=== PATIENT | female | born 1950 | race Caucasian/White ===

== ENCOUNTER → 2023-01-02 | Outpatient (CLI) | payer MEDICARE ==
[~2023-01-02] MED LIST: IBUPROFEN800 MG; Z.0.ATENOLOL100 MG; Z.0.ATENOLOL50 MG; Z.0.LEVAQUIN500 MG; Z.0.VENTOLIN HFA18 G; Z.0.VICODIN 5-5001 E
== END ==
LOC: US 09:28
PROVIDERS: ATTEND Family Medicine
DX: R91.1 Solitary pulmonary nodule (principal)
CPT/HCPCS: 71250; 76536

== ENCOUNTER → 2023-04-17 | Outpatient (CLI) | payer MEDICARE | LOC: CT 13:29 | PROVIDERS: ATTEND Family Medicine | DX: R51.9 Headache, unspecified (principal) | CPT/HCPCS: 70450 ==

== ENCOUNTER 2024-04-24 19:02 | Emergency (ER) | payer MEDICARE ==
[~2024-04-24] VITALS: Ht 162.6 cm; Wt 72.6 kg
[2024-04-24 19:05] VITALS: TEMP 98.3
[2024-04-24 19:26] LABS: BASOPHILS % 0.4 % (0.0-1.0); EOSINOPHILS # (AUTO) 0.2 (0.0-0.4); EOSINOPHILS % 2.8 % (0.0-6.0); HEMATOCRIT 41.9 % (34.2-44.1); HEMOGLOBIN 13.2 g/dL (12.0-16.0); LYMPHOCYTES # (AUTO) 1.4 (1.0-3.2); LYMPHOCYTES % 17.1 % (18.0-39.1); MEAN CORPUSCULAR HEMOGLOBIN 26.7 pg (28-32); MEAN CORPUSCULAR HGB CONC 31.5 g/dL (31-35); MEAN CORPUSCULAR VOLUME 84.8 fL (81-99); MONOCYTES # (AUTO) 0.7 (0.2-0.8); NEUTROPHILS # (AUTO) 5.8 (2.1-6.9); NEUTROPHILS % 71.5 % (38.7-80.0); PLATELET COUNT 330 x10e3/uL (140-360); RED BLOOD COUNT 4.94 x10e6/uL (3.6-5.1); RED CELL DISTRIBUTION WIDTH 14.5 % (11.7-14.4); WHITE BLOOD COUNT 8.12 x10e3/uL (4.8-10.8)
[2024-04-24] MEDS: ONDANSETRON HCL INJ 2MG/ML 2ML 2 MG/ML VIAL IV STA (19:39)
[2024-04-24] MEDS: Morphine 4mg INJECTION 4 MG/ML INJ IV ONE (19:40)
[2024-04-24 19:43] LABS: ALBUMIN 3.8 g/dL (3.5-5.0); ALBUMIN/GLOBULIN RATIO 0.9 (0.8-2.0); ANION GAP 14.1 mmol/L (8-16); BILIRUBIN,TOTAL 0.5 mg/dL (0.2-1.2); CALCIUM 10.7 mg/dL (8.4-10.2); CREATININE, SERUM 0.92 mg/dL (0.57-1.11)
[2024-04-24 19:44] LABS: LIPASE 21 U/L (8-78)
[2024-04-24 19:46] LABS: POTASSIUM 3.1 mmol/L (3.5-5.1)
[2024-04-24 19:50] LABS: TROPONIN I < 0.001 ng/mL (0-0.300)
[2024-04-24 23:00] VITALS: PULSE 57; RESP 15
[2024-04-24 23:28] VITALS: BP 139/97; PULSE 59; RESP 15; TEMP 98.5; O2SAT 100
== END 2024-04-24 23:24 | disposition home or self-care (01) ==
LOC: ER 19:08
DX: R10.30 Lower abdominal pain, unspecified (principal); R19.09 Other intra-abdominal and pelvic swelling, mass and lump; K57.90 Diverticulosis of intestine, part unspecified, without perforation or abscess without bleeding; K44.9 Diaphragmatic hernia without obstruction or gangrene; R94.31 Abnormal electrocardiogram [ECG] [EKG]
CPT/HCPCS: 36415; 74176; 80053; 83690; 84484; 85025; 93005; 99284; J2270; J2405; J2470

== ENCOUNTER 2024-09-12 02:16 | Inpatient (IN) | payer MEDICARE ==
[2024-09-12] VITALS (25 sets, daily range): BP systolic 102–149; BP diastolic 63–99; PULSE 30–142; RESP 13–22; TEMP 97.7–98.7; O2SAT 77–100
[~2024-09-12] VITALS: Ht 160 cm; Wt 59.7 kg
[2024-09-12 02:56] LABS: BASOPHILS % 0.2 % (0.0-1.0); EOSINOPHILS % 0.6 % (0.0-6.0); HEMATOCRIT 23.8 % (34.2-44.1); HEMOGLOBIN 7.9 g/dL (12.0-16.0); LYMPHOCYTES # (AUTO) 0.9 (1.0-3.2); LYMPHOCYTES % 18.9 % (18.0-39.1); MEAN CORPUSCULAR HEMOGLOBIN 29.3 pg (28-32); MEAN CORPUSCULAR HGB CONC 33.2 g/dL (31-35); MEAN CORPUSCULAR VOLUME 88.1 fL (81-99); MONOCYTES # (AUTO) 0.7 (0.2-0.8); MONOCYTES % 15.4 % (4.4-11.3); NEUTROPHILS # (AUTO) 3.1 (2.1-6.9); NEUTROPHILS % 64.3 % (38.7-80.0); PLATELET COUNT 191 x10e3/uL (140-360); RED CELL DISTRIBUTION WIDTH 13.9 % (11.7-14.4); WHITE BLOOD COUNT 4.81 x10e3/uL (4.8-10.8)
[2024-09-12] MEDS: SODIUM CHLORIDE 0.9% 1000ML 1,000 ML IV STA (03:09)
[2024-09-12 04:26] LABS: ALBUMIN 3.4 g/dL (3.5-5.0); ALBUMIN/GLOBULIN RATIO 0.9 (0.8-2.0); ANION GAP 15.8 mmol/L (8-16); BILIRUBIN,TOTAL 0.8 mg/dL (0.2-1.2); CALCIUM 8.7 mg/dL (8.4-10.2); CREATININE, SERUM 1.91 mg/dL (0.57-1.11); TOTAL PROTEIN 7.2 g/dL (6.5-8.1)
[2024-09-12 04:32] LABS: TROPONIN I 0.138 ng/mL (0-0.300)
[2024-09-12 04:42] LABS: POTASSIUM 1.8 mmol/L (3.5-5.1)
[2024-09-12] MEDS ORDERED: Morphine 4mg INJECTION 4 MG/ML INJ IV PRN (04:45)
[2024-09-12] MEDS: SODIUM CHLORIDE 0.9% 1000ML 1,000 ML IV SCH (05:46)
[2024-09-12] MEDS: POTASSIUM CHLORIDE 20MEQ/100ML 100 ML IV STA (05:47)
[2024-09-12] MEDS: POTASSIUM CHLORIDE 20 MEQ TAB CR PO STA ×2 (05:47→08:40)
[2024-09-12] MEDS: MAGNESIUM SULFATE 2GM/50ML 50 ML IV ONE ×2 (05:49→08:40)
[2024-09-12] MEDS ORDERED: POTASSIUM CHLORIDE 20MEQ/100ML 100 ML IV SCH (08:00)
[2024-09-12] MEDS ORDERED: ALBUTEROL 90 MCG/ACT INHALER INH PRN (08:15)
[2024-09-12] MEDS: LACTATED RINGER'S 1,000 ML INJ ONE (08:40)
[2024-09-12] MEDS ORDERED: POTASSIUM CHLORIDE 10MEQ/100ML 100 ML IV SCH (09:00)
[2024-09-12] MEDS: POTASSIUM CHLORIDE 20MEQ/100ML 100 ML IV SCH (09:27)
[2024-09-12] MEDS: HEPARIN SOD (PORCINE) 5,000 UNIT/ML VIAL SC SCH (09:29)
[2024-09-12 11:33] LABS: FERRITIN 2252.36 ng/mL (4.63-204.00)
[2024-09-12 15:53] LABS: ANION GAP 13.1 mmol/L (8-16); CALCIUM 8.9 mg/dL (8.4-10.2); CREATININE, SERUM 1.6 mg/dL (0.57-1.11); MAGNESIUM 2.5 MG/DL (1.3-2.1)
[2024-09-12 15:55] LABS: POTASSIUM 3.1 mmol/L (3.5-5.1)
[2024-09-12 15:59] LABS: TROPONIN I 0.088 ng/mL (0-0.300)
[2024-09-12] MEDS: POTASSIUM CHLORIDE 20MEQ/100ML 200 ML IV ONE (17:22)
[2024-09-13] VITALS (41 sets, daily range): BP systolic 113–162; BP diastolic 64–134; PULSE 43–105; RESP 14–24; TEMP 97.6–98.8; O2SAT 96–100
[2024-09-13 07:05] LABS: BASOPHILS % 0.3 % (0.0-1.0); EOSINOPHILS % 1.1 % (0.0-6.0); HEMOGLOBIN 6.9 g/dL (12.0-16.0); LYMPHOCYTES # (AUTO) 0.7 (1.0-3.2); LYMPHOCYTES % 19.5 % (18.0-39.1); MEAN CORPUSCULAR HGB CONC 33.5 g/dL (31-35); MEAN CORPUSCULAR VOLUME 89.6 fL (81-99); MONOCYTES # (AUTO) 0.7 (0.2-0.8); MONOCYTES % 18.2 % (4.4-11.3); NEUTROPHILS # (AUTO) 2.3 (2.1-6.9); NEUTROPHILS % 60.4 % (38.7-80.0); PLATELET COUNT 138 x10e3/uL (140-360); RED CELL DISTRIBUTION WIDTH 14.3 % (11.7-14.4); WHITE BLOOD COUNT 3.79 x10e3/uL (4.8-10.8)
[2024-09-13 07:14] LABS: HEMATOCRIT 20.6 % (34.2-44.1)
[2024-09-13 07:30] LABS: COLOR,URINE YELLOW (YELLOW)
[2024-09-13 07:31] LABS: ALBUMIN 3.2 g/dL (3.5-5.0); ANION GAP 13.8 mmol/L (8-16); BILIRUBIN,TOTAL 0.7 mg/dL (0.2-1.2); BILIRUBIN,URINE NEGATIVE (NEGATIVE); CALCIUM 9.3 mg/dL (8.4-10.2); CLARITY,URINE CLOUDY (CLEAR); CREATININE, SERUM 1.26 mg/dL (0.57-1.11); GLUCOSE, URINE NEGATIVE (NEGATIVE); KETONES,URINE NEGATIVE (NEGATIVE); LEUKOCYTE ESTERASE ,URINE LARGE (NEGATIVE); MAGNESIUM 1.7 MG/DL (1.3-2.1); NITRITE,URINE NEGATIVE (NEGATIVE); PH,URINE 7 (5 - 7); PROTEIN,URINE DIPSTICK NEGATIVE (NEGATIVE); TOTAL PROTEIN 6.5 g/dL (6.5-8.1); URINE UROBILINOGEN 0.2 mg/dL (0.2 - 1)
[2024-09-13 07:33] LABS: POTASSIUM 2.8 mmol/L (3.5-5.1)
[2024-09-13 07:54] LABS: BACTERIA,URINE MANY /HPF; EPITHELIAL CELLS,URINE RARE /LPF; RBC,URINE 0-5 /HPF (0-5); WBC,URINE (MAN) 21-50 /HPF (0-5)
[2024-09-13 08:06] LABS: TROPONIN I 0.058 ng/mL (0-0.300)
[2024-09-13] MEDS: LACTATED RINGER'S 1,000 ML INJ ONE (08:10)
[2024-09-13] MEDS: POTASSIUM CHLORIDE 20 MEQ TAB CR PO STA (08:12)
[2024-09-13] MEDS: MAGNESIUM SULFATE 2GM/50ML 50 ML IV ONE (08:12)
[2024-09-13] MEDS: POTASSIUM CHLORIDE 20MEQ/100ML 100 ML IV SCH (09:32)
[2024-09-13] MEDS: SODIUM CHLORIDE 0.9% 250ML 250 ML IV ONE ×2 (12:06→13:01)
[2024-09-13] MEDS: DIPHENHYDRAMINE HCL 25 MG CAP PO ONE (12:19)
[2024-09-13] MEDS: ACETAMINOPHEN 325 MG TAB PO ONE (12:20)
[2024-09-13] MEDS: DIPHENOXYLATE/ATROPINE TAB PO PRN (13:09)
[2024-09-13] MEDS: POTASSIUM PHOSPHATE 15 MM in SODIUM CHLORIDE 0.9% 250ML 250 ML IV ONE (17:57)
[2024-09-13 18:14] LABS: ANION GAP 13.9 mmol/L (8-16); CALCIUM 9.3 mg/dL (8.4-10.2); CREATININE, SERUM 1.27 mg/dL (0.57-1.11)
[2024-09-13 18:20] LABS: TROPONIN I 0.048 ng/mL (0-0.300)
[2024-09-13 18:21] LABS: POTASSIUM 2.9 mmol/L (3.5-5.1)
[2024-09-13] MEDS: POTASSIUM CHLORIDE 10MEQ EA PO ONE (19:31)
[2024-09-13] MEDS ORDERED: LOSARTAN POTASS25 MG PO (20:53)
[2024-09-13] MEDS ORDERED: AMLODIPINE BESY10 MG PO (20:53)
[2024-09-13] MEDS: DICYCLOMINE HCL 20 MG TAB PO STA (22:48)
[2024-09-13 23:04] LABS: % IRON SATURATION 28 % (15-50); IRON 68 ug/dL (50-170); TOTAL IRON BINDING CAPACITY 244 ug/dL (261-478); TRANSFERRIN 174 mg/dL (180-382)
[2024-09-13 23:29] LABS: FERRITIN > 2000.00 ng/mL (4.63-204.00)
[2024-09-13 23:51] LABS: FOLATE 5.1 ng/mL (7.0-15.4)
[2024-09-14] VITALS (16 sets, daily range): BP systolic 119–152; BP diastolic 80–109; PULSE 66–121; RESP 17–29; TEMP 97.6–98.7; O2SAT 96–100
[2024-09-14] MEDS: ZOLPIDEM TARTRATE 5 MG TAB PO PRN (01:40)
[2024-09-14 06:39] LABS: BASOPHILS % 0.2 % (0.0-1.0); EOSINOPHILS # (AUTO) 0.1 (0.0-0.4); EOSINOPHILS % 2.2 % (0.0-6.0); HEMATOCRIT 30.3 % (34.2-44.1); HEMOGLOBIN 9.8 g/dL (12.0-16.0); LYMPHOCYTES # (AUTO) 0.9 (1.0-3.2); LYMPHOCYTES % 19.7 % (18.0-39.1); MEAN CORPUSCULAR HEMOGLOBIN 28.9 pg (28-32); MEAN CORPUSCULAR HGB CONC 32.3 g/dL (31-35); MEAN CORPUSCULAR VOLUME 89.4 fL (81-99); MONOCYTES # (AUTO) 0.7 (0.2-0.8); MONOCYTES % 14.9 % (4.4-11.3); NEUTROPHILS # (AUTO) 2.8 (2.1-6.9); NEUTROPHILS % 62.3 % (38.7-80.0); PLATELET COUNT 102 x10e3/uL (140-360); RED BLOOD COUNT 3.39 x10e6/uL (3.6-5.1); RED CELL DISTRIBUTION WIDTH 13.7 % (11.7-14.4); WHITE BLOOD COUNT 4.51 x10e3/uL (4.8-10.8)
[2024-09-14 07:08] LABS: ANION GAP 12.9 mmol/L (8-16); BILIRUBIN,TOTAL 1.2 mg/dL (0.2-1.2); CALCIUM 8.9 mg/dL (8.4-10.2); CREATININE, SERUM 1.14 mg/dL (0.57-1.11); TOTAL PROTEIN 6.1 g/dL (6.5-8.1)
[2024-09-14 07:14] LABS: POTASSIUM 2.9 mmol/L (3.5-5.1)
[2024-09-14 07:30] LABS: MAGNESIUM 1.4 MG/DL (1.3-2.1); PHOSPHORUS 2.1 MG/DL (2.3-4.7)
[2024-09-14] MEDS: DICYCLOMINE HCL 20 MG TAB PO SCH (08:18)
[2024-09-14] MEDS: POTASSIUM CHLORIDE 20 MEQ TAB CR PO ONE (08:19)
[2024-09-14] MEDS: POTASSIUM CHLORIDE 20MEQ/100ML 200 ML IV ONE (08:20)
[2024-09-14 11:06] LABS: CDIFF AG QUIK CHEK NEGATIVE (NEGATIVE); CDIFF TOX QUIK CHEK NEGATIVE (NEGATIVE); WBC,FECAL (FECAL LACTOFERRIN) POSITIVE (NEGATIVE)
[2024-09-14] MEDS: FOLIC ACID 1 MG TAB PO SCH (12:08)
[2024-09-15] VITALS (16 sets, daily range): BP systolic 109–159; BP diastolic 69–91; PULSE 71–108; RESP 18–25; TEMP 97.6–98.7; O2SAT 95–100
[2024-09-15 07:46] LABS: ALBUMIN 2.9 g/dL (3.5-5.0); ALBUMIN/GLOBULIN RATIO 0.9 (0.8-2.0); ANION GAP 11.7 mmol/L (8-16); CALCIUM 8.6 mg/dL (8.4-10.2); CREATININE, SERUM 1.1 mg/dL (0.57-1.11)
[2024-09-15 07:49] LABS: POTASSIUM 2.7 mmol/L (3.5-5.1)
[2024-09-15] MEDS: MAGNESIUM SULFATE 2GM/50ML 50 ML IV ONE (08:10)
[2024-09-15] MEDS: POTASSIUM CHLORIDE 20 MEQ TAB CR PO ONE (08:10)
[2024-09-15] MEDS: POTASSIUM CHLORIDE 20MEQ/100ML 200 ML IV ONE (08:11)
[2024-09-15] MEDS: LACTATED RINGER'S 1,000 ML INJ ONE (08:11)
[2024-09-15] MEDS: KCL 20MEQ/.9 SOD CHL 1,000 ML IV SCH (10:20)
[2024-09-15] MEDS ORDERED: MORPHINE SULFAT30 M2 PO ×2 (15:44)
[2024-09-15] MEDS ORDERED: KLOR-CON 1010 MEQ PO (15:44)
[2024-09-15] MEDS ORDERED: LOSARTAN PO (15:44)
[2024-09-15] MEDS ORDERED: FOLIC ACID-VIT1 EACH PO (15:44)
[2024-09-15] MEDS ORDERED: ZYPREXA2.5 MG PO (15:44)
[2024-09-15] MEDS ORDERED: TRAZODONE HCL50 MG PO (15:44)
[2024-09-15] MEDS ORDERED: METHOCARBAMOL750 MG PO (15:44)
[2024-09-15] MEDS ORDERED: DIPHENOXYLATE-A60 ML PO (15:44)
[2024-09-15] MEDS ORDERED: PROCHLORPERAZIN10 MG PO (15:44)
[2024-09-15] MEDS: POTASSIUM CHLORIDE 20MEQ/100ML 100 ML IV SCH (17:19)
[2024-09-16] VITALS (22 sets, daily range): BP systolic 114–154; BP diastolic 52–99; PULSE 64–92; RESP 18–24; TEMP 97.5–99.5; O2SAT 93–100
[2024-09-16 06:24] LABS: BASOPHILS % 0.2 % (0.0-1.0); EOSINOPHILS # (AUTO) 0.2 (0.0-0.4); HEMATOCRIT 26.6 % (34.2-44.1); HEMOGLOBIN 9.1 g/dL (12.0-16.0); LYMPHOCYTES # (AUTO) 0.7 (1.0-3.2); MEAN CORPUSCULAR HEMOGLOBIN 29.8 pg (28-32); MEAN CORPUSCULAR HGB CONC 34.2 g/dL (31-35); MEAN CORPUSCULAR VOLUME 87.2 fL (81-99); MONOCYTES # (AUTO) 0.9 (0.2-0.8); MONOCYTES % 21.2 % (4.4-11.3); NEUTROPHILS # (AUTO) 2.3 (2.1-6.9); NEUTROPHILS % 56.4 % (38.7-80.0); PLATELET COUNT 63 x10e3/uL (140-360); RED BLOOD COUNT 3.05 x10e6/uL (3.6-5.1); RED CELL DISTRIBUTION WIDTH 14.8 % (11.7-14.4); WHITE BLOOD COUNT 4.01 x10e3/uL (4.8-10.8)
[2024-09-16 06:58] LABS: ALBUMIN 2.5 g/dL (3.5-5.0); ALBUMIN/GLOBULIN RATIO 0.9 (0.8-2.0); ANION GAP 8.9 mmol/L (8-16); BILIRUBIN,TOTAL 0.7 mg/dL (0.2-1.2); CALCIUM 8.7 mg/dL (8.4-10.2); CREATININE, SERUM 1.13 mg/dL (0.57-1.11); POTASSIUM 3.9 mmol/L (3.5-5.1); TOTAL PROTEIN 5.2 g/dL (6.5-8.1)
[2024-09-16] MEDS: SODIUM BICARBONATE 8.4% SYRING 50 ML in SODIUM CHLORIDE 0.45% 1,000 ML IV ONE (09:31)
[2024-09-16] MEDS: MAGNESIUM SULFATE 2GM/50ML 50 ML IV ONE (09:34)
[2024-09-16 10:26] LABS: EOSINOPHILS % (MANUAL) 2 % (0-7); LYMPHOCYTES % (MANUAL) 15 % (19-48); MONOCYTES % (MANUAL) 11 % (3.4-9.0); NEUTROPHILS % (MANUAL) 72 % (40-74); PLATELET ESTIMATE MODERATELY DECREASED; PLATELET MORPHOLOGY COMMENT NORMAL; RBC MORPHOLOGY COMMENT NORMAL
[2024-09-16] MEDS: POTASSIUM CHLORIDE 20MEQ/100ML 100 ML IV ONE ×2 (16:35→19:41)
[2024-09-16] MEDS: LOPERAMIDE HCL 2 MG CAP PO PRN (16:35)
[2024-09-16] MEDS: ONDANSETRON HCL INJ 2MG/ML 2ML 2 MG/ML VIAL IV PRN (17:49)
[2024-09-17] VITALS (20 sets, daily range): BP systolic 105–137; BP diastolic 52–102; PULSE 64–119; RESP 13–24; TEMP 97.9–99.5; O2SAT 87–100
[2024-09-17 06:29] LABS: BASOPHILS % 0.3 % (0.0-1.0); EOSINOPHILS # (AUTO) 0.2 (0.0-0.4); EOSINOPHILS % 5.3 % (0.0-6.0); HEMATOCRIT 24.5 % (34.2-44.1); HEMOGLOBIN 8.2 g/dL (12.0-16.0); LYMPHOCYTES # (AUTO) 0.6 (1.0-3.2); LYMPHOCYTES % 18.6 % (18.0-39.1); MEAN CORPUSCULAR HEMOGLOBIN 29.7 pg (28-32); MEAN CORPUSCULAR HGB CONC 33.5 g/dL (31-35); MEAN CORPUSCULAR VOLUME 88.8 fL (81-99); MONOCYTES # (AUTO) 0.6 (0.2-0.8); MONOCYTES % 17.8 % (4.4-11.3); NEUTROPHILS # (AUTO) 1.9 (2.1-6.9); NEUTROPHILS % 57.4 % (38.7-80.0); PLATELET COUNT 55 x10e3/uL (140-360); RED BLOOD COUNT 2.76 x10e6/uL (3.6-5.1); RED CELL DISTRIBUTION WIDTH 15.1 % (11.7-14.4); WHITE BLOOD COUNT 3.38 x10e3/uL (4.8-10.8)
[2024-09-17 06:49] LABS: ALBUMIN 2.3 g/dL (3.5-5.0); ALBUMIN/GLOBULIN RATIO 0.9 (0.8-2.0); ANION GAP 9.6 mmol/L (8-16); BILIRUBIN,TOTAL 0.4 mg/dL (0.2-1.2); CALCIUM 8.9 mg/dL (8.4-10.2); CREATININE, SERUM 1.03 mg/dL (0.57-1.11); MAGNESIUM 1.4 MG/DL (1.3-2.1); POTASSIUM 3.6 mmol/L (3.5-5.1); TOTAL PROTEIN 4.9 g/dL (6.5-8.1)
[2024-09-17] MEDS: MAGNESIUM SULFATE 2GM/50ML 50 ML IV ONE (09:24)
[2024-09-17] MEDS: SODIUM BICARBONATE 8.4% SYRING 50 ML in SODIUM CHLORIDE 0.45% 1,000 ML IV ONE (10:40)
[2024-09-17] MEDS: POTASSIUM CHLORIDE 20MEQ/100ML 100 ML IV ONE (11:37)
[2024-09-17] MEDS: DEXTROSE 5% IV SCH (11:47)
[2024-09-17] MEDS: SODIUM BICARBONATE 8.4% IV SCH (11:47)
[2024-09-17 17:26] LABS: ANION GAP 9.8 mmol/L (8-16); CREATININE, SERUM 1.08 mg/dL (0.57-1.11); POTASSIUM 3.8 mmol/L (3.5-5.1)
[2024-09-18 06:03] LABS: BASOPHILS % 0.3 % (0.0-1.0); EOSINOPHILS # (AUTO) 0.2 (0.0-0.4); EOSINOPHILS % 6.9 % (0.0-6.0); HEMATOCRIT 25.6 % (34.2-44.1); HEMOGLOBIN 8.2 g/dL (12.0-16.0); LYMPHOCYTES # (AUTO) 0.7 (1.0-3.2); LYMPHOCYTES % 19.1 % (18.0-39.1); MEAN CORPUSCULAR HEMOGLOBIN 29.3 pg (28-32); MEAN CORPUSCULAR VOLUME 91.4 fL (81-99); MONOCYTES # (AUTO) 0.7 (0.2-0.8); MONOCYTES % 19.9 % (4.4-11.3); NEUTROPHILS # (AUTO) 1.9 (2.1-6.9); NEUTROPHILS % 53.5 % (38.7-80.0); PLATELET COUNT 53 x10e3/uL (140-360); RED CELL DISTRIBUTION WIDTH 14.9 % (11.7-14.4); WHITE BLOOD COUNT 3.46 x10e3/uL (4.8-10.8)
[2024-09-18 06:10] VITALS: BP 124/74; PULSE 67; RESP 18; TEMP 98.4; O2SAT 100
[2024-09-18 06:31] LABS: ALBUMIN 2.4 g/dL (3.5-5.0); ALBUMIN/GLOBULIN RATIO 0.8 (0.8-2.0); ANION GAP 10.4 mmol/L (8-16); BILIRUBIN,TOTAL 0.5 mg/dL (0.2-1.2); CALCIUM 8.9 mg/dL (8.4-10.2); CREATININE, SERUM 1.06 mg/dL (0.57-1.11); MAGNESIUM 1.5 MG/DL (1.3-2.1); TOTAL PROTEIN 5.3 g/dL (6.5-8.1)
[2024-09-18 06:33] LABS: POTASSIUM 3.4 mmol/L (3.5-5.1)
[2024-09-18 07:35] VITALS: PULSE 72; RESP 19; O2SAT 96
[2024-09-18] MEDS: POTASSIUM CHLORIDE 20MEQ/100ML 200 ML IV ONE (08:12)
[2024-09-18 08:47] VITALS: BP 128/85; PULSE 66; RESP 20; TEMP 98; O2SAT 98
[2024-09-18 09:00] VITALS: BP 128/85; PULSE 66; RESP 20; TEMP 98; O2SAT 98
[2024-09-18 09:19] LABS: PHOSPHORUS 2.8 MG/DL (2.3-4.7)
[2024-09-18] MEDS: MAGNESIUM SULFATE 2GM/50ML 50 ML IV ONE (09:42)
[2024-09-18] MEDS ORDERED: Folic Acid PO (09:43)
[2024-09-18] MEDS ORDERED: DICYCLOMINE HCL20 MG PO (09:43)
[2024-09-18] MEDS ORDERED: CEPHALEXIN500 MG PO (09:43)
[2024-09-18] MEDS ORDERED: PANTOPRAZOLE SO40 MG PO (09:43)
[2024-09-18] MEDS ORDERED: SODIUM BICARBO650 MG PO (09:43)
== END 2024-09-18 13:00 | disposition home or self-care (01) | DRG 641 ==
LOC: ER 02:24 → ERHOLD 04:46 → ICU 08:01 → MED/SURG3 09-17 22:36
PROVIDERS: ADMIT Internal Medicine; ATTEND Internal Medicine
PROC: 06HY33Z Insertion of Infusion Device into Lower Vein, Percutaneous Approach (ICD-10-PCS; 2024-09-12)
PROC: 30233N1 Transfusion of Nonautologous Red Blood Cells into Peripheral Vein, Percutaneous Approach (ICD-10-PCS; principal; 2024-09-13)
PROC: 02HV33Z Insertion of Infusion Device into Superior Vena Cava, Percutaneous Approach (ICD-10-PCS; 2024-09-13)
DX: E86.0 Dehydration (principal); C78.89 Secondary malignant neoplasm of other digestive organs; R64 Cachexia; N17.9 Acute kidney failure, unspecified; N39.0 Urinary tract infection, site not specified; K52.1 Toxic gastroenteritis and colitis; D69.6 Thrombocytopenia, unspecified; E87.20 Acidosis, unspecified; R62.7 Adult failure to thrive; B96.1 Klebsiella pneumoniae [K. pneumoniae] as the cause of diseases classified elsewhere; E87.6 Hypokalemia; E87.1 Hypo-osmolality and hyponatremia; D63.0 Anemia in neoplastic disease; E83.42 Hypomagnesemia; I10 Essential (primary) hypertension; K44.9 Diaphragmatic hernia without obstruction or gangrene; B95.4 Other streptococcus as the cause of diseases classified elsewhere; R11.2 Nausea with vomiting, unspecified; R53.81 Other malaise; R42 Dizziness and giddiness; R30.0 Dysuria; R12 Heartburn; R19.09 Other intra-abdominal and pelvic swelling, mass and lump; R15.9 Full incontinence of feces; Z68.23 Body mass index [BMI] 23.0-23.9, adult; Z79.69 Long term (current) use of other immunomodulators and immunosuppressants; Z85.118 Personal history of other malignant neoplasm of bronchus and lung; Z90.2 Acquired absence of lung [part of]; T45.1X5A Adverse effect of antineoplastic and immunosuppressive drugs, initial encounter; Z92.21 Personal history of antineoplastic chemotherapy; Z91.041 Radiographic dye allergy status; Z87.891 Personal history of nicotine dependence
CPT/HCPCS: 36415; 36555; 36569; 71045; 71250; 74176; 80048; 80053; 81001; 82270; 82550; 82607; 82728; 82746; 82948; 83540; 83630; 83690; 83735; 83880; 83993; 84100; 84466; 84484; 85025; 85045; 86850; 86900; 86920; 87045; 87086; 87177; 87186; 87324; 87449; 93005; 93306; 94799; 99252; 99285; J0696; J1644; J2405; J2470; J3475; J3480; J7030; J7050; J7070; P9016

== ENCOUNTER 2025-06-11 11:09 | Inpatient (IN) | payer MEDICARE ==
[2025-06-11] VITALS (8 sets, daily range): BP systolic 128–165; BP diastolic 92–132; PULSE 52–75; RESP 16–21; TEMP 97.4–98.6; O2SAT 95–100
[~2025-06-11] VITALS: Ht 165.1 cm; Wt 59.4 kg
[~2025-06-11 11:09] MED LIST changes: +AMLODIPINE BESY10 MG PO; +CEPHALEXIN500 MG PO; +DICYCLOMINE HCL20 MG PO; +DIPHENOXYLATE-A60 ML PO; +FOLIC ACID-VIT1 EACH PO; +Folic Acid PO; +KLOR-CON 1010 MEQ PO; +LOSARTAN PO; +LOSARTAN POTASS25 MG PO; +METHOCARBAMOL750 MG PO; +MORPHINE SULFAT30 M2 PO; +PANTOPRAZOLE SO40 MG PO; +PROCHLORPERAZIN10 MG PO; +SODIUM BICARBO650 MG PO; +TRAZODONE HCL50 MG PO; -Z.0.VICODIN 5-5001 E; +Z.0.VICODIN 5-5001 E PO; +ZYPREXA2.5 MG PO
[2025-06-11 13:29] LABS: BASOPHILS % 0.7 % (0.0-1.0); EOSINOPHILS % 3.5 % (0.0-6.0); LYMPHOCYTES % 17.0 % (18.0-39.1); MONOCYTES % 8.8 % (4.4-11.3); NEUTROPHILS % 69.6 % (38.7-80.0); RED CELL DISTRIBUTION WIDTH 13.2 % (11.7-14.4)
[2025-06-11 13:49] LABS: EST GLOMERULAR FILTRATION RATE 32.0 ML/MIN (>=60)
[2025-06-11 14:18] LABS: LEUKOCYTE ESTERASE ,URINE NEGATIVE (NEGATIVE); PROTEIN,URINE DIPSTICK NEGATIVE (NEGATIVE); URINE UROBILINOGEN 0.2 mg/dL (0.2 - 1)
[2025-06-11 14:27] LABS: EPITHELIAL CELLS,URINE RARE /LPF; WBC,URINE (MAN) 0-5 /HPF (0-5)
[2025-06-11] MEDS ORDERED: ASPIRIN 325 MG TAB ONE (15:37)
[2025-06-11] MEDS ORDERED: ASPIRIN 81 MG CHEW TAB ONE (15:41)
[2025-06-11] MEDS: ASPIRIN 81 MG CHEW TAB PO ONE (15:42)
[2025-06-11] MEDS ORDERED: ALBUTEROL 90 MCG/ACT INHALER INH PRN (18:00)
[2025-06-11] MEDS: HYDROCODONE/APAP 5MG-325MG TAB PO PRN (18:36)
[2025-06-11] MEDS: TRAZODONE HCL 50 MG TAB PO SCH (20:59)
[2025-06-11] MEDS: ACETAMINOPHEN 325 MG TAB PO PRN (21:00)
[2025-06-12] VITALS (10 sets, daily range): BP systolic 105–145; BP diastolic 69–96; PULSE 54–76; RESP 18–21; TEMP 97.6–98.5; O2SAT 94–98
[2025-06-12] MEDS: HYDRALAZINE HCL 20 MG/ML VIAL IV PRN (00:57)
[2025-06-12 07:00] LABS: BASOPHILS % 0.3 % (0.0-1.0); EOSINOPHILS % 2.5 % (0.0-6.0); LYMPHOCYTES % 11.8 % (18.0-39.1); MONOCYTES % 6.8 % (4.4-11.3); NEUTROPHILS % 78.3 % (38.7-80.0); RED CELL DISTRIBUTION WIDTH 13.2 % (11.7-14.4)
[2025-06-12 07:28] LABS: INR 0.97
[2025-06-12 07:40] LABS: EST GLOMERULAR FILTRATION RATE 35.0 ML/MIN (>=60)
[2025-06-12] MEDS: POTASSIUM CHLORIDE 10MEQ EA PO SCH (10:56)
[2025-06-12] MEDS: DEXTROSE 5%/0.9% SOD CHL 1,000 ML IV SCH (12:08)
[2025-06-12] MEDS: ENOXAPARIN SOD INJ 40 MG/0.4 ML SYR SC SCH (16:41)
[2025-06-12] MEDS: TRAZODONE HCL 50 MG TAB PO SCH (21:19)
[2025-06-13] VITALS (12 sets, daily range): BP systolic 97–174; BP diastolic 69–158; PULSE 48–96; RESP 17–20; TEMP 97.4–98.4; O2SAT 95–100
[2025-06-13 05:08] LABS: BASOPHILS % 0.8 % (0.0-1.0); EOSINOPHILS % 6.9 % (0.0-6.0); LYMPHOCYTES % 19.5 % (18.0-39.1); MONOCYTES % 9.8 % (4.4-11.3); NEUTROPHILS % 63.0 % (38.7-80.0); RED CELL DISTRIBUTION WIDTH 13.2 % (11.7-14.4)
[2025-06-13 05:21] LABS: EST GLOMERULAR FILTRATION RATE 36.0 ML/MIN (>=60); PHOSPHORUS 2.8 MG/DL (2.3-4.7)
[2025-06-13] MEDS: ASPIRIN 81 MG ENTERIC COATED PO SCH (08:21)
[2025-06-13] MEDS ORDERED: D5NS/KCL 20MEQ 1,000 ML IV SCH (10:00)
[2025-06-13] MEDS: POTASSIUM CHLORIDE 10MEQ EA PO ONE (10:27)
[2025-06-13] MEDS: POTASSIUM PHOSPHATE 15 MM in SODIUM CHLORIDE 0.9% 250ML 250 ML IV SCH (10:32)
[2025-06-13] MEDS: D5NS/KCL 20MEQ 1,000 ML IV SCH (15:08)
[2025-06-14] VITALS (10 sets, daily range): BP systolic 140–170; BP diastolic 66–113; PULSE 64–84; RESP 16–19; TEMP 97.3–98.2; O2SAT 96–100
[2025-06-14 06:30] LABS: EST GLOMERULAR FILTRATION RATE 45.0 ML/MIN (>=60); PHOSPHORUS 2.3 MG/DL (2.3-4.7)
[2025-06-14] MEDS ORDERED: MAGNESIUM SULFATE 2GM/50ML IV ONE (08:00)
[2025-06-14] MEDS: CLOPIDOGREL BISULFATE 75 MG TAB PO SCH (10:17)
[2025-06-14] MEDS: MAGNESIUM SULFATE 2GM/50ML 50 ML IV ONE (10:17)
[2025-06-15] VITALS (8 sets, daily range): BP systolic 135–177; BP diastolic 66–133; PULSE 68–102; RESP 14–20; TEMP 97.8–98.2; O2SAT 94–100
[2025-06-15 06:12] LABS: BASOPHILS % 0.4 % (0.0-1.0); EOSINOPHILS % 4.4 % (0.0-6.0); LYMPHOCYTES % 16.0 % (18.0-39.1); MONOCYTES % 9.8 % (4.4-11.3); NEUTROPHILS % 69.0 % (38.7-80.0); RED CELL DISTRIBUTION WIDTH 13.1 % (11.7-14.4)
[2025-06-15 06:53] LABS: EST GLOMERULAR FILTRATION RATE 48.0 ML/MIN (>=60); PHOSPHORUS 2.1 MG/DL (2.3-4.7)
[2025-06-16] VITALS (11 sets, daily range): BP systolic 116–167; BP diastolic 71–102; PULSE 89–106; RESP 16–20; TEMP 97.6–98.6; O2SAT 94–100
[2025-06-16] MEDS: POTASSIUM PHOSPHATE 30 MM in SODIUM CHLORIDE 0.9% 250ML 250 ML IV ONE (01:10)
[2025-06-16 05:58] LABS: EST GLOMERULAR FILTRATION RATE 45.0 ML/MIN (>=60)
[2025-06-16 06:21] LABS: PHOSPHORUS 4.0 MG/DL (2.3-4.7)
[2025-06-16] MEDS: MEGESTROL ACETATE 40 MG TAB PO SCH (10:04)
[2025-06-16] MEDS: MIRTAZAPINE 15 MG TAB PO SCH (21:43)
[2025-06-17] VITALS (10 sets, daily range): BP systolic 100–132; BP diastolic 63–93; PULSE 71–105; RESP 16–20; TEMP 97.9–98.8; O2SAT 95–100
[2025-06-17 05:35] LABS: BASOPHILS % 0.6 % (0.0-1.0); EOSINOPHILS % 2.7 % (0.0-6.0); LYMPHOCYTES % 17.9 % (18.0-39.1); MONOCYTES % 11.9 % (4.4-11.3); NEUTROPHILS % 66.6 % (38.7-80.0); RED CELL DISTRIBUTION WIDTH 13.5 % (11.7-14.4)
[2025-06-17 06:05] LABS: EST GLOMERULAR FILTRATION RATE 35.0 ML/MIN (>=60); PHOSPHORUS 3.1 MG/DL (2.3-4.7)
[2025-06-17 06:21] LABS: CHOL/HDL RATIO 3.2 (3.0-3.6); LDL CHOLESTEROL 78.0 MG/DL (60-130)
[2025-06-17] MEDS: DEXTROSE 5%/0.9% SOD CHL 1,000 ML IV SCH (22:02)
[2025-06-18] VITALS (11 sets, daily range): BP systolic 106–169; BP diastolic 74–125; PULSE 73–95; RESP 16–18; TEMP 97–98.8; O2SAT 95–100
[2025-06-18] MEDS: ONDANSETRON HCL INJ 2MG/ML 2ML 2 MG/ML VIAL IV PRN (10:57)
[2025-06-18] MEDS: TRAMADOL HCL 50 MG TAB PO SCH (11:34)
[2025-06-18] MEDS: ATORVASTATIN 40 MG TAB PO SCH (21:00)
[2025-06-19] VITALS (9 sets, daily range): BP systolic 117–140; BP diastolic 70–109; PULSE 60–96; RESP 18–21; TEMP 97.8–99.7; O2SAT 95–98
[2025-06-19 05:55] LABS: BASOPHILS % 0.6 % (0.0-1.0); EOSINOPHILS % 4.5 % (0.0-6.0); LYMPHOCYTES % 17.3 % (18.0-39.1); MONOCYTES % 11.2 % (4.4-11.3); NEUTROPHILS % 66.1 % (38.7-80.0); RED CELL DISTRIBUTION WIDTH 13.5 % (11.7-14.4)
[2025-06-19 06:06] LABS: PHOSPHORUS 2.5 MG/DL (2.3-4.7)
[2025-06-19 06:06] LABS: EST GLOMERULAR FILTRATION RATE 41.0 ML/MIN (>=60)
[2025-06-19 11:07] LABS: EOSINOPHILS % (MANUAL) 2 % (0-7); LYMPHOCYTES % (MANUAL) 18 % (19-48); MONOCYTES % (MANUAL) 5 % (3.4-9.0); NEUTROPHILS % (MANUAL) 72 % (40-74); PLATELET ESTIMATE ADEQUATE; PLATELET MORPHOLOGY COMMENT NORMAL; REACTIVE LYMPHOCYTES 3
[2025-06-20] VITALS (10 sets, daily range): BP systolic 115–162; BP diastolic 78–100; PULSE 80–119; RESP 16–21; TEMP 97.7–99.7; O2SAT 95–98
[2025-06-20] MEDS: CLOPIDOGREL BISULFATE 75 MG TAB PO SCH (10:07)
[2025-06-21] VITALS (11 sets, daily range): BP systolic 133–159; BP diastolic 91–108; PULSE 62–112; RESP 16–22; TEMP 97.7–99.6; O2SAT 95–97
[2025-06-21] MEDS: SENNA-S TABLET PO SCH (11:45)
[2025-06-21] MEDS ORDERED: BISACODYL 10 MG SUPP PR PRN (11:45)
[2025-06-21] MEDS: BISACODYL 10 MG SUPP PR ONE (13:29)
[2025-06-21] MEDS ORDERED: ASPIRIN 81 MG CHEW TAB PO SCH (15:00)
[2025-06-21] MEDS ORDERED: CLOPIDOGREL BISULFATE 75 MG TAB PO SCH (15:00)
[2025-06-21] MEDS: POLYETHYLENE GLYCOL 3350 17 GM PACK PO SCH (16:07)
[2025-06-22] VITALS (9 sets, daily range): BP systolic 110–181; BP diastolic 75–89; PULSE 87–105; RESP 16–20; TEMP 97.7–98.4; O2SAT 95–100
[2025-06-22 05:50] LABS: EST GLOMERULAR FILTRATION RATE 40.0 ML/MIN (>=60)
[2025-06-22] MEDS: POTASSIUM BICARBONATE/CIT AC 20 MEQ TABLET.EFF PO ONE (08:55)
[2025-06-22] MEDS: KCL 40MEQ/0.9% SOD CHL 1,000 ML IV SCH (09:10)
[2025-06-22] MEDS ORDERED: BISACODYL 10 MG SUPP PR PRN (09:15)
[2025-06-22] MEDS: BISACODYL 10 MG SUPP PR ONE (18:07)
[2025-06-22] MEDS: ENOXAPARIN SOD INJ 40 MG/0.4 ML SYR SC SCH (18:11)
[2025-06-22] MEDS ORDERED: D5NS/KCL 20MEQ 1,000 ML IV SCH (21:45)
[2025-06-23] VITALS (8 sets, daily range): BP systolic 147–156; BP diastolic 62–99; PULSE 81–95; RESP 16–20; TEMP 97–98.9; O2SAT 96–100
[2025-06-23] MEDS: POTASSIUM CHLORIDE IN D5W 1,000 ML IV ONE (00:06)
[2025-06-23] MEDS: POTASSIUM CHLORIDE 20 MEQ in DEXTROSE 5% 1,000 ML IV SCH (00:12)
[2025-06-23 05:12] LABS: BASOPHILS % 0.5 % (0.0-1.0); EOSINOPHILS % 3.3 % (0.0-6.0); LYMPHOCYTES % 11.9 % (18.0-39.1); MONOCYTES % 8.1 % (4.4-11.3); NEUTROPHILS % 75.8 % (38.7-80.0); RED CELL DISTRIBUTION WIDTH 13.4 % (11.7-14.4)
[2025-06-23 05:49] LABS: EST GLOMERULAR FILTRATION RATE 46.0 ML/MIN (>=60)
[2025-06-23 06:09] LABS: PHOSPHORUS 1.4 MG/DL (2.3-4.7)
[2025-06-23] MEDS ORDERED: MAGNESIUM SULFATE 2GM/50ML IV ONE (08:00)
[2025-06-23] MEDS: TRAMADOL HCL 50 MG TAB PO PRN (09:07)
[2025-06-23] MEDS: MAGNESIUM SULFATE 2GM/50ML 50 ML IV ONE (09:08)
[2025-06-23] MEDS: POTASSIUM PHOSPHATE 40 MM in SODIUM CHLORIDE 0.9% 500ML 500 ML IV ONE (11:02)
[2025-06-24] VITALS (10 sets, daily range): BP systolic 123–149; BP diastolic 81–94; PULSE 80–113; RESP 16–18; TEMP 97.5–101.9; O2SAT 95–100
[2025-06-24 14:19] LABS: EST GLOMERULAR FILTRATION RATE 45.0 ML/MIN (>=60)
[2025-06-24 14:34] LABS: PHOSPHORUS 3.4 MG/DL (2.3-4.7)
[2025-06-24] MEDS: D5NS/KCL 20MEQ 1,000 ML IV SCH (15:36)
[2025-06-24] MEDS: ACETAMINOPHEN 1000 MG/100 ML IV PRN (18:44)
[2025-06-24] MEDS: FUROSEMIDE INJ 10 MG/ML 4 ML VIAL IV ONE (18:44)
[2025-06-24] MEDS: DIGOXIN INJ 0.25 MG/ML 2 ML AMP ONE (18:50)
[2025-06-24] MEDS: METOPROLOL TARTRATE INJ 1 MG/ML VIAL ONE (18:51)
[2025-06-24 21:49] LABS: LEUKOCYTE ESTERASE ,URINE SMALL (NEGATIVE); PROTEIN,URINE DIPSTICK 2+ (NEGATIVE); URINE UROBILINOGEN 0.2 mg/dL (0.2 - 1)
[2025-06-24 22:16] LABS: EPITHELIAL CELLS,URINE FEW /LPF
[2025-06-24 22:17] LABS: TRIPLE PHOSPHATE CRYSTAL,UR MANY
[2025-06-25] VITALS (10 sets, daily range): BP systolic 100–146; BP diastolic 56–92; PULSE 84–107; RESP 16–18; TEMP 98–100.6; O2SAT 95–100
[2025-06-25] MEDS: METOPROLOL TARTRATE INJ 1 MG/ML VIAL IV ONE (03:19)
[2025-06-25 05:26] LABS: BASOPHILS % 0.3 % (0.0-1.0); EOSINOPHILS % 0.7 % (0.0-6.0); LYMPHOCYTES % 7.9 % (18.0-39.1); MONOCYTES % 7.1 % (4.4-11.3); NEUTROPHILS % 83.4 % (38.7-80.0); RED CELL DISTRIBUTION WIDTH 13.8 % (11.7-14.4)
[2025-06-25 05:59] LABS: PHOSPHORUS 4.1 MG/DL (2.3-4.7)
[2025-06-25 06:28] LABS: EST GLOMERULAR FILTRATION RATE 32.0 ML/MIN (>=60)
[2025-06-25] MEDS ORDERED: ALBUTEROL/IPRATROPIUM 3 ML NEB NEB PRN (08:30)
[2025-06-25] MEDS ORDERED: ONDANSETRON HCL 4 MG ORAL DISINTEGRATING TAB PO PRN (08:30)
[2025-06-25] MEDS ORDERED: METOPROLOL TARTRATE 25 MG TAB PO SCH (09:00)
[2025-06-25] MEDS: POLYETHYLENE GLYCOL 3350 17 GM PACK PEG SCH (11:38)
[2025-06-25] MEDS: SENNA-S TABLET PEG SCH (11:39)
[2025-06-25] MEDS: METOPROLOL TARTRATE 25 MG TAB PEG SCH (11:39)
[2025-06-25] MEDS: TRAMADOL HCL 50 MG TAB PEG PRN (12:36)
[2025-06-25] MEDS: ALBUTEROL/IPRATROPIUM 3 ML NEB NEB SCH (14:53)
[2025-06-25] MEDS: ATORVASTATIN 10 MG TAB PEG SCH (20:44)
[2025-06-25] MEDS: HYDROCODONE/APAP 5MG-325MG TAB PEG PRN (20:45)
[2025-06-25] MEDS: MIRTAZAPINE 15 MG TAB PEG SCH (20:45)
[2025-06-26] VITALS (12 sets, daily range): BP systolic 119–135; BP diastolic 69–88; PULSE 83–106; RESP 17–22; TEMP 98.6–100.1; O2SAT 95–100
[2025-06-27] VITALS (23 sets, daily range): BP systolic 100–134; BP diastolic 56–117; PULSE 76–133; RESP 18–38; TEMP 98.4–102.3; O2SAT 95–100
[2025-06-27] MEDS: SODIUM CHLORIDE 0.9% 1000ML 2,000 ML ONE (05:23)
[2025-06-27 05:31] LABS: ABG BASE EXCESS -6.0 mmol/L (-2 - 3); ABG HCO3 17 mmol/L (22-26); ABG OXYGEN SATURATION 98.0 % (95-98); ABG PCO2 21 mmHg (35-45); ABG PH 7.52 (7.35-7.45); ABG PO2 84 mmHg (80-105); ABG TCO2 18
[2025-06-27] MEDS: ACETAMINOPHEN 325 MG TAB PEG ONE (05:43)
[2025-06-27] MEDS ORDERED: VANCOMYCIN 1.5 GM/300 ML (PEG) 300 ML IV ONE (05:45)
[2025-06-27] MEDS: Vancomycin IV 1.5 GM in SODIUM CHLORIDE 0.9% 250ML 250 ML IV ONE (08:06)
[2025-06-27 09:25] LABS: BASOPHILS % 0.4 % (0.0-1.0); EOSINOPHILS % 1.1 % (0.0-6.0); LYMPHOCYTES % 19.1 % (18.0-39.1); MONOCYTES % 8.5 % (4.4-11.3); NEUTROPHILS % 70.2 % (38.7-80.0); RED CELL DISTRIBUTION WIDTH 14.1 % (11.7-14.4)
[2025-06-27 09:37] LABS: EST GLOMERULAR FILTRATION RATE 36.0 ML/MIN (>=60)
[2025-06-27] MEDS: KCL 20 MEQ PACKET/ ORAL SOLN NG ONE (10:55)
[2025-06-27] MEDS: ACETAMINOPHEN 325 MG TAB PEG PRN (16:28)
[2025-06-27] MEDS: SODIUM CHLORIDE 0.9% 1000ML 1,000 ML ONE (21:07)
[2025-06-28] VITALS (24 sets, daily range): BP systolic 92–119; BP diastolic 46–78; PULSE 95–114; RESP 22–36; TEMP 101.3–102.2; O2SAT 92–100
[2025-06-28] MEDS: ACETAMINOPHEN 325 MG/10 ML UDC PEG PRN (20:40)
[2025-06-29] VITALS (13 sets, daily range): BP systolic 93–113; BP diastolic 54–68; PULSE 88–101; RESP 22–32; TEMP 100–100.4; O2SAT 95–99
[2025-06-29 06:02] LABS: ABG BASE EXCESS -6.0 mmol/L (-2 - 3); ABG HCO3 17 mmol/L (22-26); ABG OXYGEN SATURATION 98.0 % (95-98); ABG PCO2 21 mmHg (35-45); ABG PH 7.52 (7.35-7.45); ABG PO2 84 mmHg (80-105); ABG TCO2 18
[2025-06-29] MEDS: ACETAMINOPHEN 1000 MG/100 ML IV PRN (08:09)
== END 2025-06-29 14:45 | disposition hospice, home (50) | DRG 64 ==
LOC: ER 11:31 → ERHOLD 13:28 → MED/SURG2 17:05 → ICU 06-27 06:05
PROVIDERS: ADMIT Internal Medicine; ATTEND Internal Medicine
PROC: 0DH63UZ Insertion of Feeding Device into Stomach, Percutaneous Approach (ICD-10-PCS; 2025-06-24)
PROC: 3E0G76Z Introduction of Nutritional Substance into Upper GI, Via Natural or Artificial Opening (ICD-10-PCS; 2025-06-25)
PROC: 4A033R1 Measurement of Arterial Saturation, Peripheral, Percutaneous Approach (ICD-10-PCS; principal; 2025-06-27)
PROC: 4A033R1 Measurement of Arterial Saturation, Peripheral, Percutaneous Approach (ICD-10-PCS; 2025-06-27)
DX: I63.49 Cerebral infarction due to embolism of other cerebral artery (principal); E43 Unspecified severe protein-calorie malnutrition; G93.41 Metabolic encephalopathy; G92.8 Other toxic encephalopathy; J69.0 Pneumonitis due to inhalation of food and vomit; J18.9 Pneumonia, unspecified organism; C34.12 Malignant neoplasm of upper lobe, left bronchus or lung; C79.89 Secondary malignant neoplasm of other specified sites; J98.11 Atelectasis; J44.1 Chronic obstructive pulmonary disease with (acute) exacerbation; N39.0 Urinary tract infection, site not specified; G81.91 Hemiplegia, unspecified affecting right dominant side; E87.29 Other acidosis; J44.0 Chronic obstructive pulmonary disease with (acute) lower respiratory infection; Y95 Nosocomial condition; R13.10 Dysphagia, unspecified; I12.9 Hypertensive chronic kidney disease with stage 1 through stage 4 chronic kidney disease, or unspecified chronic kidney disease; B96.4 Proteus (mirabilis) (morganii) as the cause of diseases classified elsewhere; B95.2 Enterococcus as the cause of diseases classified elsewhere; J43.9 Emphysema, unspecified; Z87.891 Personal history of nicotine dependence; I65.21 Occlusion and stenosis of right carotid artery; E87.8 Other disorders of electrolyte and fluid balance, not elsewhere classified; K86.9 Disease of pancreas, unspecified; K26.9 Duodenal ulcer, unspecified as acute or chronic, without hemorrhage or perforation; R53.81 Other malaise; R62.7 Adult failure to thrive; Z71.3 Dietary counseling and surveillance; Z68.21 Body mass index [BMI] 21.0-21.9, adult; N18.30 Chronic kidney disease, stage 3 unspecified; K29.50 Unspecified chronic gastritis without bleeding; T45.1X5A Adverse effect of antineoplastic and immunosuppressive drugs, initial encounter; K44.9 Diaphragmatic hernia without obstruction or gangrene; E83.52 Hypercalcemia; I71.21 Aneurysm of the ascending aorta, without rupture; R00.0 Tachycardia, unspecified; I49.1 Atrial premature depolarization; K59.00 Constipation, unspecified; M25.511 Pain in right shoulder; M47.9 Spondylosis, unspecified; Z79.69 Long term (current) use of other immunomodulators and immunosuppressants; Z90.2 Acquired absence of lung [part of]; Z86.718 Personal history of other venous thrombosis and embolism; Z86.711 Personal history of pulmonary embolism; Z79.01 Long term (current) use of anticoagulants; Y92.009 Unspecified place in unspecified non-institutional (private) residence as the place of occurrence of the external cause; Z79.899 Other long term (current) drug therapy
CPT/HCPCS: 36415; 36600; 43246; 70450; 70544; 70551; 71045; 71250; 74018; 80048; 80053; 80061; 81001; 82607; 82746; 82805; 82948; 83605; 83735; 83970; 84100; 84443; 84484; 85025; 85610; 85730; 87040; 87086; 87186; 93005; 93306; 93880; 93970; 94799; 99284; J0295; J0360; J0692; J1160; J1650; J1938; J2405; J2543; J3373; J3475; J3480; J7030; J7040; J7042; J7050; J7070